=== PATIENT | female | born 1940 | race Two or more races ===

== ENCOUNTER 2018-08-09 11:25 | Inpatient (IN) | payer MEDICARE ==
[~2018-08-09] VITALS: Ht 165.1 cm; Wt 110.7 kg
[2018-08-09] MEDS ORDERED: SODIUM CHLORIDE 0.9% 1,000 ML IV ONE (11:56)
[2018-08-09] MEDS ORDERED: ONDANSETRON HCL 4MG/2ML INJ IV STA ×2 (11:56→13:48)
[2018-08-09] MEDS ORDERED: MORPHINE SULFATE 4 MG/ML CPJ (NOT FOR IM USE) IV STA ×2 (11:56→13:48)
[2018-08-09 12:17] LABS: BASOPHILS % 0.2 % (0.0-2.0); EOSINOPHILS % 0.2 % (0.0-5.0); HEMATOCRIT. 43.6 % (36.0-48.0); HEMOGLOBIN. 14.8 g/dL (12.0-16.0); LYMPHOCYTES % 11.6 % (20.0-50.0); MEAN CORPUSCULAR HEMOGLOBIN 27.5 pg (28.0-32.0); MEAN CORPUSCULAR VOLUME 80.8 fL (81.0-99.0); MEAN PLATELET VOLUME 10.2 fl (7.4-10.4); MONOCYTES % 2.9 % (2.0-8.0); NEUTROPHILS % 85.1 % (40.0-76.0); PLATELET 166 x1000/uL (130-400); RED CELL DISTRIBUTION WIDTH 15.6 % (11.6-14.6)
[2018-08-09 12:25] LABS: CHLORIDE 103 mEq/L (98-107)
[2018-08-09 12:40] LABS: PROTHROMBIN TIME 10.6 sec (9.6-11.0)
[2018-08-09 13:51] LABS: CLARITY URINE TURBID (CLEAR); COLOR URINE YELLOW (YELLOW); KETONES URINE TRACE (NEGATIVE); LEUKOCYTE ESTERASE URINE 2+ (NEGATIVE); NITRITE URINE NEGATIVE (NEGATIVE); OCCULT BLOOD URINE TRACE (NEGATIVE); PROTEIN URINE 1+ (NEGATIVE); SPECIFIC GRAVITY URINE 1.015 (1.005-1.030); UROBILINOGEN URINE 0.2 E.U./dL (0.2-1.0)
[2018-08-09] MEDS ORDERED: LEVOFLOXACIN 750MG PREMIX 150 ML IV ONE (14:15)
[2018-08-09] MEDS ORDERED: METRONIDAZOLE 500 MG PREMIX 100 ML IV ONE (14:45)
[2018-08-09] MEDS ORDERED: IOHEXOL-300 100 ML BOTTLE ONE (14:57)
[2018-08-09] MEDS ORDERED: ONDANSETRON HCL 4MG/2ML INJ IV PRN (16:15)
[2018-08-09] MEDS ORDERED: IPRATROPIUM/ALBUTEROL 0.5-3(2.5)MG/3ML NEB INH PRN (16:15)
[2018-08-09] MEDS ORDERED: CLONIDINE 0.1MG TABLET PO PRN (16:15)
[2018-08-09 18:45] VITALS: BP 159/98
[2018-08-09 18:50] VITALS: BP 159/98
[2018-08-09 20:00] VITALS: BP 138/66
[2018-08-09] MEDS: ACETAMINOPHEN 325MG TABLET PO PRN (20:10)
[2018-08-09] MEDS: ENOXAPARIN 40MG/0.4ML SYR SUBCUT SCH (20:17)
[2018-08-09] MEDS ORDERED: DEXTROSE 50% WATER 50ML SYRINGE IV PRN (21:15)
[2018-08-09] MEDS: MORPHINE SULFATE 2 MG/ML CPJ (NOT FOR IM USE) IV PRN (21:29)
[2018-08-09] MEDS: INSULIN LISPRO 100 UNITS/ML SUBCUT SCH (21:32)
[2018-08-09] MEDS: METRONIDAZOLE 500 MG PREMIX 100 ML IV SCH (22:37)
[2018-08-10] VITALS: BP 127/81
[2018-08-10] MEDS ORDERED: ATOR10TA69 MT (00:19)
[2018-08-10] MEDS ORDERED: GABA-529 PO (00:19)
[2018-08-10] MEDS ORDERED: ACET-2178 PO (00:19)
[2018-08-10] MEDS ORDERED: HYDR12.529 PO (00:19)
[2018-08-10] MEDS ORDERED: CARV3.1242 MT (00:19)
[2018-08-10] MEDS: MORPHINE SULFATE 2 MG/ML CPJ (NOT FOR IM USE) IV PRN ×3 (01:37→23:10)
[2018-08-10] MEDS: ACETAMINOPHEN 325MG TABLET PO PRN ×3 (02:14→21:00)
[2018-08-10 04:00] VITALS: BP 135/71
[2018-08-10] MEDS: METRONIDAZOLE 500 MG PREMIX 100 ML IV SCH ×3 (06:30→21:00)
[2018-08-10 06:33] LABS: BASOPHILS % 0.2 % (0.0-2.0); EOSINOPHILS % 0.3 % (0.0-5.0); HEMATOCRIT. 37.1 % (36.0-48.0); HEMOGLOBIN. 12.7 g/dL (12.0-16.0); LYMPHOCYTES % 20.4 % (20.0-50.0); MEAN CORPUSCULAR HEMOGLOBIN 27.4 pg (28.0-32.0); MEAN CORPUSCULAR VOLUME 80.3 fL (81.0-99.0); MEAN PLATELET VOLUME 10.7 fl (7.4-10.4); MONOCYTES % 7.1 % (2.0-8.0); PLATELET 165 x1000/uL (130-400); RED BLOOD CELL COUNT 4.62 mill/uL (4.2-5.4); RED CELL DISTRIBUTION WIDTH 15.8 % (11.6-14.6)
[2018-08-10 06:53] LABS: CHLORIDE 104 mEq/L (98-107)
[2018-08-10 07:07] LABS: LDL CHOLESTEROL 80 mg/dL (5-100)
[2018-08-10 07:11] LABS: CREATINE KINASE 83 IU/L (26-192); HDL CHOLESTEROL 52 mg/dL (40-59); T4 FREE 1.05 ng/dL (0.76-1.46)
[2018-08-10] MEDS: INSULIN LISPRO 100 UNITS/ML SUBCUT SCH ×4 (07:40→21:01)
[2018-08-10] MEDS: BLOOD SUGAR DIAGNOSTIC STRIP TEST SCH ×4 (07:41→21:02)
[2018-08-10 08:00] VITALS: BP 132/54
[2018-08-10] MEDS: SODIUM CHLORIDE 0.45% 1,000 ML IV SCH ×2 (09:41→17:22)
[2018-08-10 12:00] VITALS: BP 132/47
[2018-08-10] MEDS ORDERED: LEVOFLOXACIN 500MG PREMIX 100 ML IV SCH ×2 (14:00→15:00)
[2018-08-10] MEDS: LEVOFLOXACIN 500MG PREMIX 100 ML IV SCH (14:59)
[2018-08-10 16:00] VITALS: BP 122/65
[2018-08-10] MEDS ORDERED: SORBITOL 70% SOLN 30ML PO NR ×2 (16:00→20:00)
[2018-08-10 20:00] VITALS: BP 130/55
[2018-08-10] MEDS: ENOXAPARIN 40MG/0.4ML SYR SUBCUT SCH (20:59)
[2018-08-11] VITALS: BP 136/75
[2018-08-11 04:00] VITALS: BP 139/69
[2018-08-11] MEDS: METRONIDAZOLE 500 MG PREMIX 100 ML IV SCH ×3 (05:18→21:00)
[2018-08-11] MEDS: MORPHINE SULFATE 2 MG/ML CPJ (NOT FOR IM USE) IV PRN ×3 (05:19→21:00)
[2018-08-11] MEDS: INSULIN LISPRO 100 UNITS/ML SUBCUT SCH ×4 (05:20→21:33)
[2018-08-11] MEDS: BLOOD SUGAR DIAGNOSTIC STRIP TEST SCH ×4 (05:41→21:01)
[2018-08-11 07:00] LABS: BASOPHILS % 0.2 % (0.0-2.0); EOSINOPHILS % 0.5 % (0.0-5.0); HEMATOCRIT. 39.9 % (36.0-48.0); HEMOGLOBIN. 13.7 g/dL (12.0-16.0); LYMPHOCYTES % 23.4 % (20.0-50.0); MEAN CORPUSCULAR HEMOGLOBIN 27.8 pg (28.0-32.0); MEAN CORPUSCULAR VOLUME 81.1 fL (81.0-99.0); MEAN PLATELET VOLUME 10.8 fl (7.4-10.4); MONOCYTES % 7.3 % (2.0-8.0); NEUTROPHILS % 68.6 % (40.0-76.0); PLATELET 180 x1000/uL (130-400); RED BLOOD CELL COUNT 4.92 mill/uL (4.2-5.4); RED CELL DISTRIBUTION WIDTH 15.8 % (11.6-14.6)
[2018-08-11 07:29] LABS: CHLORIDE 110 mEq/L (98-107)
[2018-08-11 08:00] VITALS: BP 139/75
[2018-08-11] MEDS: SODIUM CHLORIDE 0.45% 1,000 ML IV SCH ×2 (08:11→21:00)
[2018-08-11] MEDS ORDERED: BACTERIOSTATIC SODIUM CHLORIDE 0.9% 30ML VIAL IJ ONE (10:24)
[2018-08-11] MEDS ORDERED: MIDAZOLAM HCL 5 MG/5 ML VIAL ONE (11:37)
[2018-08-11] MEDS ORDERED: FENTANYL CITRATE/PF 50MCG/ML 2ML VIAL ONE (11:37)
[2018-08-11 12:00] VITALS: BP 165/70
[2018-08-11] MEDS ORDERED: MIDAZOLAM HCL 5 MG/5 ML VIAL IV ONE (12:17)
[2018-08-11] MEDS ORDERED: FENTANYL CITRATE/PF 50MCG/ML 2ML VIAL IV ONE (12:18)
[2018-08-11] MEDS ORDERED: DIPHENHYDRAMINE 50MG/ML VIAL IV ONE (12:19)
[2018-08-11] MEDS ORDERED: DIPHENHYDRAMINE 50MG/ML VIAL ONE ×2 (12:20→12:24)
[2018-08-11] MEDS: LEVOFLOXACIN 500MG PREMIX 100 ML IV SCH ×2 (13:00→20:05)
[2018-08-11 16:00] VITALS: BP 164/74
[2018-08-11 20:00] VITALS: BP 136/74
[2018-08-11] MEDS: ENOXAPARIN 40MG/0.4ML SYR SUBCUT SCH (20:59)
[2018-08-11] MEDS: ACETAMINOPHEN 325MG TABLET PO PRN (23:45)
[2018-08-12] VITALS: BP_SYST 103; BP_SYST 129; BP_DIAS 53; BP_DIAS 61
[2018-08-12] MEDS: LEVOFLOXACIN 500MG PREMIX 100 ML IV SCH (00:52)
[2018-08-12 04:00] VITALS: BP 116/50
[2018-08-12] MEDS: METRONIDAZOLE 500 MG PREMIX 100 ML IV SCH ×2 (05:08→14:00)
[2018-08-12] MEDS: INSULIN LISPRO 100 UNITS/ML SUBCUT SCH ×2 (06:07→13:06)
[2018-08-12] MEDS: BLOOD SUGAR DIAGNOSTIC STRIP TEST SCH ×2 (06:07→12:36)
[2018-08-12 06:40] LABS: CHLORIDE 111 mEq/L (98-107)
[2018-08-12 06:44] LABS: HEMATOCRIT 34.7 % (36.0-48.0); HEMOGLOBIN 11.9 g/dL (12.0-16.0); MEAN CORPUSCULAR HEMOGLOBIN 27.8 pg (28.0-32.0); PLATELET 143 x1000/uL (130-400); RED BLOOD CELL COUNT 4.28 mill/uL (4.2-5.4); RED CELL DISTRIBUTION WIDTH 15.5 % (11.6-14.6)
[2018-08-12 08:00] VITALS: BP 145/85
[2018-08-12] MEDS: MORPHINE SULFATE 2 MG/ML CPJ (NOT FOR IM USE) IV PRN (08:16)
[2018-08-12] MEDS: SODIUM CHLORIDE 0.45% 1,000 ML IV SCH (10:51)
[2018-08-12 12:00] VITALS: BP 134/74
[2018-08-12 13:46] VITALS: BP 134/74
[2018-08-12 16:11] VITALS: BP 127/69
== END 2018-08-12 16:07 | disposition home or self-care (01) | DRG 872 ==
LOC: ER 11:25 → 8WST 15:21 → EDBEDREQ 15:25 → EDBEDREQTM 15:25 → ENRESERV 17:04
PROVIDERS: ADMIT Internal Medicine; ATTEND Internal Medicine
PROC: 0DBK8ZX Excision of Ascending Colon, Via Natural or Artificial Opening Endoscopic, Diagnostic (ICD-10-PCS; principal; 2018-08-11)
PROC: 0DBN8ZX Excision of Sigmoid Colon, Via Natural or Artificial Opening Endoscopic, Diagnostic (ICD-10-PCS; 2018-08-11)
PROC: 0DBB8ZX Excision of Ileum, Via Natural or Artificial Opening Endoscopic, Diagnostic (ICD-10-PCS; 2018-08-11)
DX: A41.9 Sepsis, unspecified organism (principal); N39.0 Urinary tract infection, site not specified; E66.2 Morbid (severe) obesity with alveolar hypoventilation; Z68.41 Body mass index [BMI] 40.0-44.9, adult; K57.90 Diverticulosis of intestine, part unspecified, without perforation or abscess without bleeding; K52.9 Noninfective gastroenteritis and colitis, unspecified; E11.65 Type 2 diabetes mellitus with hyperglycemia; N28.1 Cyst of kidney, acquired; E78.00 Pure hypercholesterolemia, unspecified; E78.5 Hyperlipidemia, unspecified; I10 Essential (primary) hypertension; Z88.0 Allergy status to penicillin
CPT/HCPCS: 36415; 71045; 74177; 80048; 80061; 82270; 82550; 82962; 83036; 83605; 84145; 84439; 84481; 84484; 85027; 85651; 86038; 86140; 87015; 87045; 87427; 87449; 87493; 88305; 89055; 93005; 97162; 99291; C1893; J1200; J1650; J1815; J1956; J2250; J2270; J2405; J3010; J3490; J7030; Q9967; A4315

== ENCOUNTER 2022-03-09 08:57 | Inpatient (IN) | payer MEDICARE, MEDICAID ==
[~2022-03-09] VITALS: Ht 167.6 cm; Wt 117.5 kg
[~2022-03-09 08:57] MED LIST: ATOR10TA69 MT; CARV3.1242 MT; GABA-529 PO; HYDR12.529 PO; TOPUD PO
[2022-03-09 12:51] LABS: BASOPHILS % 0.7 % (0.0-2.0); EOSINOPHILS % 2.1 % (0.0-5.0); HEMOGLOBIN. 11.6 g/dL (12.0-16.0); LYMPHOCYTES % 25.2 % (20.0-50.0); MEAN CORPUSCULAR HEMOGLOBIN 24.2 pg (28.0-32.0); MEAN PLATELET VOLUME 9.6 fl (7.4-10.4); MONOCYTES % 8.6 % (2.0-8.0); NEUTROPHILS % 63.4 % (40.0-76.0); PLATELET 179 x1000/uL (130-400); RED BLOOD CELL COUNT 4.79 mill/uL (4.2-5.4); RED CELL DISTRIBUTION WIDTH 21.3 % (11.6-14.6)
[2022-03-09 12:58] LABS: CHLORIDE 102 mEq/L (98-107)
[2022-03-09] MEDS ORDERED: ASPIRIN 81MG TABLET PO ONE (13:15)
[2022-03-09] MEDS ORDERED: NITROGLYCERIN 0.4MG TABLET SL SL PRN (13:15)
[2022-03-09] MEDS ORDERED: IOHEXOL-350 100 ML BOTTLE ONE (17:22)
[2022-03-09] MEDS ORDERED: MAGNESIUM/ALUMINUM HYDROXIDE/SIMETHICONE 30ML UDC PO PRN (21:00)
[2022-03-09] MEDS ORDERED: ACETAMINOPHEN 325MG TABLET PO PRN (21:00)
[2022-03-09] MEDS ORDERED: DEXTROSE 50% WATER 50ML SYRINGE IV PRN (21:00)
[2022-03-09] MEDS: INSULIN LISPRO 100 UNITS/ML SUBCUT SCH (21:00)
[2022-03-09] MEDS ORDERED: CLONIDINE 0.1MG TABLET PO PRN (21:00)
[2022-03-09] MEDS ORDERED: IPRATROPIUM/ALBUTEROL 0.5-3(2.5)MG/3ML NEB HHN PRN (21:00)
[2022-03-09] MEDS ORDERED: GUAIFENESIN 200MG/10ML SUGAR FREE UDC PO PRN (21:00)
[2022-03-09] MEDS ORDERED: ONDANSETRON HCL 4MG/2ML INJ IV PRN (21:00)
[2022-03-09] MEDS ORDERED: LEVO200T8 PO (21:21)
[2022-03-09] MEDS ORDERED: METO-539 PO (21:21)
[2022-03-09] MEDS ORDERED: ATOR20TA65 PO (21:21)
[2022-03-09] MEDS ORDERED: PANT40TA51 PO (21:21)
[2022-03-09] MEDS ORDERED: APIX2.5T PO (21:21)
[2022-03-09] MEDS ORDERED: NALOXONE HCL 0.4MG/ML VIAL IV PRN (21:30)
[2022-03-09] MEDS: BLOOD SUGAR DIAGNOSTIC STRIP TEST SCH (21:48)
[2022-03-09] MEDS: HYDROCODONE/ACETAMINOPHEN 5/325MG TABLET PO PRN (22:03)
[2022-03-09 23:26] LABS: TOTAL IRON BINDING CAPACITY 260 ug/dL (250-450)
[2022-03-09 23:42] LABS: FERRITIN 25 ng/mL (10-291)
[2022-03-09 23:50] LABS: VITAMIN B12 SERUM 390 pg/mL (211-911)
[2022-03-10 00:49] LABS: CREATINE KINASE 20 IU/L (26-192); CREATINE KINASE MB FRACTION < 1.0 ng/mL (0.5-3.6)
[2022-03-10 05:31] LABS: BASOPHILS % 0.6 % (0.0-2.0); EOSINOPHILS % 2.7 % (0.0-5.0); HEMATOCRIT. 32.8 % (36.0-48.0); HEMOGLOBIN. 10.9 g/dL (12.0-16.0); LYMPHOCYTES % 24.4 % (20.0-50.0); MEAN CORPUSCULAR HEMOGLOBIN 24.4 pg (28.0-32.0); MEAN CORPUSCULAR VOLUME 73.4 fL (81.0-99.0); MEAN PLATELET VOLUME 9.4 fl (7.4-10.4); MONOCYTES % 12.4 % (2.0-8.0); NEUTROPHILS % 59.9 % (40.0-76.0); PLATELET 166 x1000/uL (130-400); RED BLOOD CELL COUNT 4.46 mill/uL (4.2-5.4); RED CELL DISTRIBUTION WIDTH 21.3 % (11.6-14.6)
[2022-03-10] MEDS: HYDROCODONE/ACETAMINOPHEN 5/325MG TABLET PO PRN ×3 (05:37→21:53)
[2022-03-10 05:39] LABS: CHLORIDE 105 mEq/L (98-107)
[2022-03-10 05:48] LABS: CREATINE KINASE 19 IU/L (26-192); CREATINE KINASE MB FRACTION < 1.0 ng/mL (0.5-3.6)
[2022-03-10 06:04] LABS: HDL CHOLESTEROL 52 mg/dL (40-59); LDL CHOLESTEROL 98 mg/dL (5-100); T4 FREE 1.33 ng/dL (0.76-1.46)
[2022-03-10] MEDS: METOPROLOL TARTRATE 25MG TABLET PO SCH ×3 (09:00→20:27)
[2022-03-10] MEDS: INSULIN LISPRO 100 UNITS/ML SUBCUT SCH ×4 (09:41→20:28)
[2022-03-10] MEDS: DOCUSATE SODIUM 100MG CAPSULE PO PRN ×2 (09:42→18:23)
[2022-03-10] MEDS: ACETAMINOPHEN 325MG TABLET PO PRN (09:42)
[2022-03-10] MEDS: PANTOPRAZOLE 40MG DR TABLET PO SCH (09:43)
[2022-03-10] MEDS: BLOOD SUGAR DIAGNOSTIC STRIP TEST SCH ×4 (09:44→20:28)
[2022-03-10] MEDS: LEVOTHYROXINE SODIUM 200MCG TABLET PO SCH (10:01)
[2022-03-10] MEDS: APIXABAN 2.5 MG TABLET PO SCH ×2 (10:01→18:23)
[2022-03-10 13:00] VITALS: BP 107/40
[2022-03-10] MEDS ORDERED: METH-773 PO (15:49)
[2022-03-10] MEDS ORDERED: BENZ200C52 MT (15:49)
[2022-03-10] MEDS ORDERED: ERGO1250 MT (15:49)
[2022-03-10] MEDS ORDERED: FERR325T6 MT (15:49)
[2022-03-10] MEDS ORDERED: DICY10CA88 PO (15:49)
[2022-03-10] MEDS ORDERED: INSU100I28 SQ (15:49)
[2022-03-10] MEDS ORDERED: TOPUD MT (15:49)
[2022-03-10] MEDS ORDERED: TRAM100T34 PO (15:49)
[2022-03-10] MEDS ORDERED: LACT10SO7 MT (15:49)
[2022-03-10] MEDS ORDERED: BUDE0.5A3 NEB (15:49)
[2022-03-10] MEDS ORDERED: METO-539 MT (15:49)
[2022-03-10] MEDS ORDERED: ATOR20TA65 MT (15:49)
[2022-03-10] MEDS ORDERED: MAGN200T5 PO (15:49)
[2022-03-10] MEDS ORDERED: POLY250017 MT (15:49)
[2022-03-10] MEDS ORDERED: GABA300C PO (15:49)
[2022-03-10] MEDS ORDERED: DOCU250C69 PO (15:49)
[2022-03-10] MEDS ORDERED: BUME2TAB7 MT (15:49)
[2022-03-10] MEDS ORDERED: LISI-186 MT (15:49)
[2022-03-10] MEDS ORDERED: IPRA3AMP31 NEB (15:49)
[2022-03-10] MEDS ORDERED: SIME80TA15 PO (15:49)
[2022-03-10] MEDS ORDERED: HYDR-4009 MT (15:49)
[2022-03-10] MEDS ORDERED: CLON0.1T PO (15:49)
[2022-03-10 16:00] VITALS: BP 122/51
[2022-03-10 19:19] LABS: CREATINE KINASE 100 IU/L (26-192); CREATINE KINASE MB FRACTION < 1.0 ng/mL (0.5-3.6)
[2022-03-10 20:00] VITALS: BP 117/48
[2022-03-10] MEDS: ATORVASTATIN CALCIUM 20MG TABLET PO SCH (20:27)
[2022-03-10 23:00] LABS: CLARITY URINE TURBID (CLEAR); COLOR URINE ORANGE (YELLOW); KETONES URINE NEGATIVE (NEGATIVE); LEUKOCYTE ESTERASE URINE 3+ (NEGATIVE); NITRITE URINE NEGATIVE (NEGATIVE); OCCULT BLOOD URINE NEGATIVE (NEGATIVE); PH URINE 8.5 (4.5-8.0); PROTEIN URINE 1+ (NEGATIVE); SPECIFIC GRAVITY URINE 1.021 (1.005-1.030)
[2022-03-10 23:55] VITALS: BP 96/71
[2022-03-11 04:00] VITALS: BP 109/87
[2022-03-11] MEDS: BLOOD SUGAR DIAGNOSTIC STRIP TEST SCH ×4 (05:51→21:00)
[2022-03-11] MEDS: PANTOPRAZOLE 40MG DR TABLET PO SCH (05:57)
[2022-03-11] MEDS: LEVOTHYROXINE SODIUM 200MCG TABLET PO SCH (05:57)
[2022-03-11] MEDS: INSULIN LISPRO 100 UNITS/ML SUBCUT SCH ×5 (06:05→21:00)
[2022-03-11] MEDS: HYDROCODONE/ACETAMINOPHEN 5/325MG TABLET PO PRN ×3 (06:05→17:56)
[2022-03-11 07:32] LABS: HEMOGLOBIN 10.6 g/dL (12.0-16.0); MEAN CORPUSCULAR HEMOGLOBIN 24.4 pg (28.0-32.0); MEAN CORPUSCULAR VOLUME 73.4 fL (81.0-99.0); PLATELET 172 x1000/uL (130-400); RED BLOOD CELL COUNT 4.36 mill/uL (4.2-5.4); RED CELL DISTRIBUTION WIDTH 20.7 % (11.6-14.6)
[2022-03-11 08:02] LABS: CHLORIDE 109 mEq/L (98-107)
[2022-03-11 08:05] VITALS: BP 110/45
[2022-03-11] MEDS: METOPROLOL TARTRATE 25MG TABLET PO SCH (08:39)
[2022-03-11] MEDS: APIXABAN 2.5 MG TABLET PO SCH ×2 (08:40→18:59)
[2022-03-11 08:57] LABS: PHOSPHORUS 3.7 mg/dL (2.5-4.9)
[2022-03-11] MEDS ORDERED: DIGOXIN 500MCG/2ML AMP IV NR (10:15)
[2022-03-11] MEDS ORDERED: SODIUM CHLORIDE 0.9% 1000ML BAG (SEPSIS BOLUS) IV ONE (11:00)
[2022-03-11] MEDS ORDERED: SODIUM CHLORIDE 0.9% 1000ML BAG (SEPSIS BOLUS) IV NR (11:00)
[2022-03-11] MEDS ORDERED: DILTIAZEM HCL 5MG/ML 5ML VIAL IV PRN (11:00)
[2022-03-11 12:00] VITALS: BP 113/94
[2022-03-11] MEDS ORDERED: LIDOCAINE HCL 1% 10 MG/ML 10ML VIAL ONE (12:10)
[2022-03-11] MEDS: DILTIAZEM HCL 30MG TABLET PO SCH ×3 (12:41→18:00)
[2022-03-11] MEDS: SODIUM CHLORIDE 0.9% 1,000 ML IV SCH ×2 (13:52→23:35)
[2022-03-11] MEDS: CEFTRIAXONE 1,000 MG in DEXTROSE 5% WATER 50 ML IV SCH (13:52)
[2022-03-11] MEDS ORDERED: ALBUTEROL (0.083%) 2.5MG/3ML NEB HHN PRN (14:00)
[2022-03-11] MEDS ORDERED: IPRATROPIUM BROMIDE (0.02%) 0.5MG/2.5ML NEB HHN PRN (14:00)
[2022-03-11 16:30] VITALS: BP 111/46
[2022-03-11] MEDS ORDERED: AMIODARONE HCL 150 MG in DEXT 5% WATER 100 ML IV NR (16:30)
[2022-03-11 20:01] VITALS: BP 118/88
[2022-03-12] VITALS (12 sets, daily range): BP systolic 59–124; BP diastolic 57–109
[2022-03-12] MEDS: ATORVASTATIN CALCIUM 20MG TABLET PO SCH ×2 (00:59→21:12)
[2022-03-12] MEDS: DILTIAZEM HCL 30MG TABLET PO SCH ×5 (05:12→23:51)
[2022-03-12 06:51] LABS: CHLORIDE 112 mEq/L (98-107)
[2022-03-12 07:02] LABS: PHOSPHORUS 3.5 mg/dL (2.5-4.9)
[2022-03-12 07:24] LABS: HEMATOCRIT 30.8 % (36.0-48.0); HEMOGLOBIN 10.4 g/dL (12.0-16.0); MEAN CORPUSCULAR VOLUME 73.9 fL (81.0-99.0); PLATELET 170 x1000/uL (130-400); RED BLOOD CELL COUNT 4.16 mill/uL (4.2-5.4); RED CELL DISTRIBUTION WIDTH 21.4 % (11.6-14.6)
[2022-03-12] MEDS: BLOOD SUGAR DIAGNOSTIC STRIP TEST SCH ×4 (07:30→21:26)
[2022-03-12] MEDS: INSULIN LISPRO 100 UNITS/ML SUBCUT SCH ×4 (08:00→21:26)
[2022-03-12] MEDS: FAMOTIDINE 20MG TABLET PO SCH ×2 (08:56→18:13)
[2022-03-12] MEDS: ACETAMINOPHEN 325MG TABLET PO PRN (08:56)
[2022-03-12] MEDS: APIXABAN 2.5 MG TABLET PO SCH ×2 (08:56→18:13)
[2022-03-12] MEDS: CEFTRIAXONE 1,000 MG in DEXTROSE 5% WATER 50 ML IV SCH (08:57)
[2022-03-12] MEDS: DOCUSATE SODIUM 100MG CAPSULE PO PRN (08:59)
[2022-03-12] MEDS ORDERED: DIGOXIN 500MCG/2ML AMP IV PRN (12:45)
[2022-03-12] MEDS: HYDROCODONE/ACETAMINOPHEN 5/325MG TABLET PO PRN ×2 (12:54→21:13)
[2022-03-12] MEDS: SODIUM CHLORIDE 0.9% 1,000 ML IV SCH (12:58)
[2022-03-12] MEDS: AMIODARONE HCL 900 MG in DEXT 5% WATER 482 ML IV PRN (13:41)
[2022-03-13] VITALS (15 sets, daily range): BP systolic 91–120; BP diastolic 35–93
[2022-03-13] MEDS: SODIUM CHLORIDE 0.9% 1,000 ML IV SCH ×2 (00:12→15:22)
[2022-03-13] MEDS: HYDROCODONE/ACETAMINOPHEN 5/325MG TABLET PO PRN ×3 (01:15→16:29)
[2022-03-13] MEDS: DILTIAZEM HCL 30MG TABLET PO SCH ×3 (06:00→18:18)
[2022-03-13] MEDS: DOCUSATE SODIUM 100MG CAPSULE PO PRN (06:17)
[2022-03-13 06:28] LABS: HEMATOCRIT 30.5 % (36.0-48.0); HEMOGLOBIN 10.2 g/dL (12.0-16.0); MEAN CORPUSCULAR HEMOGLOBIN 24.6 pg (28.0-32.0); MEAN CORPUSCULAR VOLUME 73.6 fL (81.0-99.0); PLATELET 165 x1000/uL (130-400); RED BLOOD CELL COUNT 4.15 mill/uL (4.2-5.4); RED CELL DISTRIBUTION WIDTH 21.1 % (11.6-14.6)
[2022-03-13] MEDS: FAMOTIDINE 20MG TABLET PO SCH ×2 (07:30→16:30)
[2022-03-13 07:36] LABS: CHLORIDE 113 mEq/L (98-107); PHOSPHORUS 3.6 mg/dL (2.5-4.9)
[2022-03-13] MEDS: INSULIN LISPRO 100 UNITS/ML SUBCUT SCH ×4 (08:00→22:10)
[2022-03-13] MEDS: BLOOD SUGAR DIAGNOSTIC STRIP TEST SCH ×4 (08:22→21:49)
[2022-03-13] MEDS: APIXABAN 2.5 MG TABLET PO SCH ×2 (08:38→16:30)
[2022-03-13] MEDS: CEFTRIAXONE 1,000 MG in DEXTROSE 5% WATER 50 ML IV SCH (08:38)
[2022-03-13 12:59] LABS: BG BASE EXCESS -2.3 mmol/L (-2.0-2.0); BG CARBOXYHEMOGLOBIN 0.3 % (0.5-1.5); BG DEOXYHEMOGLOBIN 2.4 % (0.0-5.0); BG FRACTION INSPIRED OXYGEN 32; BG HCO3 ACT 22.3 mmol/L (22.0-26.0); BG METHEMOGLOBIN 0.3 % (0.0-1.5); BG OXYGEN SATURATION 97.6 % (92.0-98.5); BG PCO2 37.4 mmHg (35.0-45.0); BG PH 7.393 (7.350-7.450); BG PO2 111.5 mmHg (75.0-100.0); BG SAMPLE SITE RIGHT RADIAL; BG TOTAL HEMOGLOBIN 10.3 g/dL (12.0-18.0); BG VENT MODE NASAL CANNULA
[2022-03-13] MEDS ORDERED: LACTULOSE 20G/30ML UDC PO NR (13:00)
[2022-03-13] MEDS ORDERED: POLYETHYLENE GLYCOL 3350 (17GM) 1 DOSE PACK PO PRN (13:00)
[2022-03-13] MEDS: ATORVASTATIN CALCIUM 20MG TABLET PO SCH (22:08)
[2022-03-13] MEDS: AMIODARONE HCL 900 MG in DEXT 5% WATER 482 ML IV PRN (22:19)
[2022-03-14] VITALS (11 sets, daily range): BP systolic 99–138; BP diastolic 50–82
[2022-03-14] MEDS: SODIUM CHLORIDE 0.9% 1,000 ML IV SCH ×2 (05:54→18:13)
[2022-03-14] MEDS: DILTIAZEM HCL 30MG TABLET PO SCH ×4 (06:00→18:12)
[2022-03-14] MEDS: HYDROCODONE/ACETAMINOPHEN 5/325MG TABLET PO PRN (06:10)
[2022-03-14 06:49] LABS: HEMATOCRIT 30.7 % (36.0-48.0); HEMOGLOBIN 10.2 g/dL (12.0-16.0); MEAN CORPUSCULAR HEMOGLOBIN 24.6 pg (28.0-32.0); PLATELET 158 x1000/uL (130-400); RED BLOOD CELL COUNT 4.15 mill/uL (4.2-5.4); RED CELL DISTRIBUTION WIDTH 21.2 % (11.6-14.6)
[2022-03-14 06:55] LABS: CHLORIDE 115 mEq/L (98-107)
[2022-03-14 06:59] LABS: PHOSPHORUS 3.8 mg/dL (2.5-4.9)
[2022-03-14] MEDS: BLOOD SUGAR DIAGNOSTIC STRIP TEST SCH ×4 (07:44→21:42)
[2022-03-14] MEDS: INSULIN LISPRO 100 UNITS/ML SUBCUT SCH ×4 (07:45→21:36)
[2022-03-14] MEDS: APIXABAN 2.5 MG TABLET PO SCH ×2 (08:31→18:12)
[2022-03-14] MEDS: FAMOTIDINE 20MG TABLET PO SCH ×2 (08:32→18:12)
[2022-03-14] MEDS: CEFTRIAXONE 1,000 MG in DEXTROSE 5% WATER 50 ML IV SCH (08:33)
[2022-03-14] MEDS ORDERED: LIDOCAINE 2% 6ML GLYDO MM ONE (09:09)
[2022-03-14] MEDS ORDERED: TETRACAINE/BENZOCAINE/BUTAMBEN 20 GM SPRAY MM ONE (09:09)
[2022-03-14] MEDS ORDERED: FENTANYL CITRATE/PF 50MCG/ML 2ML VIAL ONE (09:43)
[2022-03-14] MEDS ORDERED: MIDAZOLAM HCL 2 MG/2 ML VIAL ONE ×2 (09:43)
[2022-03-14] MEDS: ACETAMINOPHEN 325MG TABLET PO PRN ×2 (15:37→23:00)
[2022-03-14] MEDS: DOCUSATE SODIUM 100MG CAPSULE PO PRN (15:40)
[2022-03-14] MEDS ORDERED: DILT30TA38 PO (16:09)
[2022-03-14] MEDS ORDERED: AMI2 MT (16:20)
[2022-03-14] MEDS: ATORVASTATIN CALCIUM 20MG TABLET PO SCH (21:34)
[2022-03-15] VITALS (8 sets, daily range): BP systolic 124–137; BP diastolic 50–68
[2022-03-15] MEDS: DILTIAZEM HCL 30MG TABLET PO SCH ×2 (00:23→06:29)
[2022-03-15] MEDS: BLOOD SUGAR DIAGNOSTIC STRIP TEST SCH ×3 (06:30→16:03)
[2022-03-15] MEDS: INSULIN LISPRO 100 UNITS/ML SUBCUT SCH ×3 (06:30→16:03)
[2022-03-15] MEDS: FAMOTIDINE 20MG TABLET PO SCH ×2 (06:30→15:55)
[2022-03-15] MEDS: SODIUM CHLORIDE 0.9% 1,000 ML IV SCH (07:35)
[2022-03-15] MEDS: APIXABAN 2.5 MG TABLET PO SCH ×2 (09:05→15:55)
[2022-03-15] MEDS: CEFTRIAXONE 1,000 MG in DEXTROSE 5% WATER 50 ML IV SCH (09:06)
[2022-03-15] MEDS ORDERED: AMIODARONE HCL 200 MG TABLET PO SCH (10:00)
[2022-03-15] MEDS: ACETAMINOPHEN 325MG TABLET PO PRN (14:22)
[2022-03-16] MEDS ORDERED: DILTIAZEM HCL 120MG CAPSULE ER 24HR PO SCH (09:00)
[2022-03-22] MEDS ORDERED: AMIODARONE HCL 200 MG TABLET PO SCH (09:00)
== END 2022-03-15 17:45 | DRG 206 ==
LOC: ER 09:05 → 7EST 12:27 → EDBEDREQTM 12:38 → EDBEDREQ 12:38 → ENRESERV 03-10 08:55 → 5EST 03-11 17:54 → 8WST 03-14 18:02
PROVIDERS: ADMIT Hospitalist; ATTEND Hospitalist
PROC: 05HY33Z Insertion of Infusion Device into Upper Vein, Percutaneous Approach (ICD-10-PCS; 2022-03-11)
PROC: B54MZZA Ultrasonography of Right Upper Extremity Veins, Guidance (ICD-10-PCS; 2022-03-11)
PROC: 5A2204Z Restoration of Cardiac Rhythm, Single (ICD-10-PCS; principal; 2022-03-14)
DX: M94.0 Chondrocostal junction syndrome [Tietze] (principal); I48.92 Unspecified atrial flutter; E44.1 Mild protein-calorie malnutrition; Z68.41 Body mass index [BMI] 40.0-44.9, adult; I10 Essential (primary) hypertension; D50.9 Iron deficiency anemia, unspecified; I27.20 Pulmonary hypertension, unspecified; I48.91 Unspecified atrial fibrillation; E11.42 Type 2 diabetes mellitus with diabetic polyneuropathy; Z20.822 Contact with and (suspected) exposure to COVID-19; J44.9 Chronic obstructive pulmonary disease, unspecified; E88.09 Other disorders of plasma-protein metabolism, not elsewhere classified; E78.00 Pure hypercholesterolemia, unspecified; G89.29 Other chronic pain; M17.10 Unilateral primary osteoarthritis, unspecified knee; E05.90 Thyrotoxicosis, unspecified without thyrotoxic crisis or storm; E66.01 Morbid (severe) obesity due to excess calories; D63.8 Anemia in other chronic diseases classified elsewhere; E89.0 Postprocedural hypothyroidism; Z79.4 Long term (current) use of insulin; Z79.899 Other long term (current) drug therapy; Z79.01 Long term (current) use of anticoagulants; Z86.73 Personal history of transient ischemic attack (TIA), and cerebral infarction without residual deficits; Z99.81 Dependence on supplemental oxygen; Z87.891 Personal history of nicotine dependence; Z86.718 Personal history of other venous thrombosis and embolism; Z80.41 Family history of malignant neoplasm of ovary
CPT/HCPCS: 36415; 36573; 36600; 71045; 71275; 80048; 80053; 80061; 81003; 82375; 82550; 82553; 82607; 82728; 82746; 82805; 82962; 83036; 83540; 83550; 83605; 83735; 83880; 84100; 84145; 84439; 84443; 84481; 84484; 85025; 85027; 85379; 87426; 87804; 92960; 93005; 93306; 93312; 93970; 97110; 97162; 97166; 97535; 99285; C1725; C1893; C9803; J0282; J0696; J1160; J1815; J2250; J2405; J3010; J3490; J7030; J7060; Q9967